=== PATIENT | female | born 1975 | race Caucasian/White ===

== ENCOUNTER 2016-11-12 10:23 | Emergency (ER) | payer MEDICAID ==
[~2016-11-12] VITALS: Ht 152.4 cm; Wt 65.5 kg
[~2016-11-12 10:23] MED LIST: FAMO-18 PO; HYDR-3720 PO; LD2VS100B MM; OMEP40CA3 PO
[2016-11-12 10:44] VITALS: Ht 152.4 cm; Wt 65.5 kg
[2016-11-12] MEDS ORDERED: SOD CHLORIDE 0.9% 1,000 ML IV STA (12:07)
[2016-11-12] MEDS ORDERED: morphine 4 MG/ML VIAL IV STA (12:07)
[2016-11-12] MEDS ORDERED: ONDANSETRON 4 MG INJ IV STA (12:07)
[2016-11-12 12:21] LABS: ADD SCAN DIFF NO
[2016-11-12 12:26] LABS: BASOPHILS % 0.3 % (0.0-2.0); EOSINOPHILS # 0.4 10^3/ul (0.0-0.5); EOSINOPHILS % 4.6 % (0.0-7.0); HEMOGLOBIN 10.4 g/dl (12.0-16.0); LYMPHOCYTES # 2.4 10^3/ul (0.8-2.9); LYMPHOCYTES % 24.4 % (15.0-51.0); MEAN CORPUSCULAR HEMOGLOBIN 21.9 pg (29.0-33.0); MEAN CORPUSCULAR HGB CONC 30.6 g/dl (32.0-37.0); MEAN CORPUSCULAR VOLUME 71.6 fl (82.0-101.0); MONOCYTE # 0.7 10^3/ul (0.3-0.9); MONOCYTES % 6.7 % (0.0-11.0); NEUTROPHIL # 6.2 10^3/ul (1.6-7.5); NEUTROPHILS % 63.8 % (39.0-77.0); PLATELET COUNT 406 10^3/UL (140-415); RED BLOOD COUNT 4.75 10^6/ul (4.20-5.40); RED CELL DISTRIBUTION WIDTH 17.1 % (11.5-14.5); WHITE BLOOD COUNT 9.7 10^3/ul (4.8-10.8)
[2016-11-12 12:34] LABS: ADD UMIC NO; UR BILIRUBIN (Dip) NEGATIVE (NEGATIVE); UR BLOOD (Dip) NEGATIVE (NEGATIVE); UR CLARITY CLEAR (CLEAR); UR COLOR LT. YELLOW (YELLOW); UR GLUCOSE (Dip) NEGATIVE (NEGATIVE); UR KETONES (Dip) NEGATIVE (NEGATIVE); UR LEUKOCYTE ESTERASE (Dip) NEGATIVE (NEGATIVE); UR NITRITE (Dip) NEGATIVE (NEGATIVE); UR TOTAL PROTEIN (Dip) NEGATIVE (NEGATIVE); UR UROBILINOGEN (Dip) 0.2 E.U./dL (0.1-1.0)
[2016-11-12 12:50] LABS: ALBUMIN 4.9 g/dl (3.3-4.9); ALBUMIN/GLOBULIN RATIO 1.63; BILIRUBIN,INDIRECT 0.3 mg/dl (0-1.1); BILIRUBIN,TOTAL 0.3 mg/dl (0.2-1.3); CALCIUM 9.5 mg/dl (8.4-10.2); CREATININE 0.78 mg/dl (0.44-1.00); POTASSIUM 3.6 mmol/L (3.5-5.1); TOTAL PROTEIN 7.9 g/dl (6.1-8.1)
[2016-11-12] MEDS ORDERED: OMEP20CA16 PO (13:49)
[2016-11-12 14:15] VITALS: BP 117/65; PULSE 70; RESP 18; TEMP 98.2
--- NOTE | 2016-11-12 14:23 | ERA ---
ER Documentation Chief Complaint Date/Time DATE: 11/12/16 TIME: 14:14 Chief Complaint ABD PAIN WITH NAUSEA AND VOMITING X4 MONTHS. SEES BLOOD IN VOMIT HPI This is a 40-year-old female with a chief complaint of abdominal pain that is intermittent 4 months. Patient describes the pain as burning. Denies chest pain or shortness of breath. Patient's pain is worse with food and at nighttime. Patient describes burning in the throat. Denies dyspnea, abdominal aphasia, dysphasia. Denies any alleviating factors. Has been seen for this same symptomology many times over the past 4 months. Patient's last menstrual cycle was 1 week ago. Denies known . Patient denies anorexia, weight loss, migrating pain, constipation, new or recently changed medications, genital pain or ingestion of new or undercooked food. Patient has not taken any medication to relieve the symptoms. Surgery equals cholecystectomy 5 years ago. Patient's vaccination status is up-to-date. Denies drug or alcohol use, family medical history/personal medical history, or new/changed medications. ROS All systems reviewed and are negative except as per history of present illness. Medications Home Meds Active Scripts Omeprazole* (Omeprazole*) 20 Mg Capsule., 20 MG PO BID, #20 Prov:SHANTELL TOMLINSON PA-C 11/12/16 Famotidine* (Pepcid*) 20 Mg Tablet, 20 MG PO BID for 15 Days, TAB Prov:REYNALDO TURNER 09/26/15 Lidocaine Viscous 2%* (Lidocaine Viscous 2%*) 100 Ml Soln, 15 ML MM AC MEALS, # 120 ML Prov:ISADORA VELEZ DO 09/23/15 Omeprazole* (Prilosec*) 40 Mg Capsule., 40 MG PO DAILY, #60 CAP Prov:ISADORA VELEZ DO 09/23/15 Hydrocodone Bit-Acetaminophen* (G[place]rie*) 7.5-325 Tablet, 2 TAB PO Q4H Y for PAIN , #30 TAB Prov:ISADORA VELEZ DO 09/23/15 Allergies Allergies: Coded Allergies: Shellfish (Verified Allergy, Mild, 05/27/11) fish derived (Verified Allergy, Mild, 05/27/11) PMhx/Soc History of Surgery: Yes (CHOLECSTECTOMY,3 CS, TUBAL LIGATION) Anesthesia Reaction: No Hx Neurological Disorder: No Hx Respiratory Disorders: Yes (ASTHMA) Hx Cardiac Disorders: No Hx Psychiatric Problems: No Hx Miscellaneous Medical Probl: No Hx Alcohol Use: No Hx Substance Use: No Hx Tobacco Use: No Physical Exam Vitals Vital Signs Date Time Temp Pulse Resp B/P Pulse Ox O2 Delivery O2 Flow Rate FiO2 11/12/16 10:44 98.4 71 16 114/70 99 Physical Exam Const: [] Head: Atraumatic Eyes: Normal Conjunctiva ENT: Normal External Ears, Nose and Mouth. Neck: Full range of motion..~ No meningismus. Resp: Clear to auscultation bilaterally Cardio: Regular rate and rhythm, no murmurs Abd: Soft, non tender, non distended. Normal bowel sounds Skin: No petechiae or rashes Back: No midline or flank tenderness Ext: No cyanosis, or edema Neur: Awake and alert Psych: Normal Mood and Affect Result Diagram: 11/12/16 1214 11/12/16 1214 Results 24 hrs Laboratory Tests Test 11/12/16 12:14 White Blood Count 9.710^3/ul Red Blood Count 4.7510^6/ul Hemoglobin 10.4g/dl Hematocrit 34.0% Mean Corpuscular Volume 71.6fl Mean Corpuscular Hemoglobin 21.9pg Mean Corpuscular Hemoglobin Concent 30.6g/dl Red Cell Distribution Width 17.1% Platelet Count 24943^3/UL Mean Platelet Volume 10.0fl Neutrophils % 63.8% Lymphocytes % 24.4% Monocytes % 6.7% Eosinophils % 4.6% Basophils % 0.3% Nucleated Red Blood Cells % 0.0/100WBC Neutrophils # 6.210^3/ul Lymphocytes # 2.410^3/ul Monocytes # 0.710^3/ul Eosinophils # 0.410^3/ul Basophils # 0.010^3/ul Nucleated Red Blood Cells # 0.010^3/ul Urine Color LT. YELLOW Urine Clarity CLEAR Urine pH 5.5 Urine Specific Sullivan <=1.005 Urine Ketones NEGATIVE Urine Nitrite NEGATIVE Urine Bilirubin NEGATIVE Urine Urobilinogen 0.2 E.U./dL Urine Leukocyte Esterase NEGATIVE Urine Hemoglobin NEGATIVE Urine Glucose NEGATIVE% Urine Total Protein NEGATIVE Sodium Level 139mmol/L Potassium Level 3.6mmol/L Chloride Level 102mmol/L Carbon Dioxide Level 28mmol/L Anion Gap 13 Blood Urea Nitrogen 11mg/dl Creatinine 0.78mg/dl Glucose Level 81mg/dl Calcium Level 9.5mg/dl Total Bilirubin 0.3mg/dl Direct Bilirubin 0.00mg/dl Indirect Bilirubin 0.3mg/dl Aspartate Amino Transf (AST/SGOT) 25IU/L Alanine Aminotransferase (ALT/SGPT) 35IU/L Alkaline Phosphatase 71IU/L Total Protein 7.9g/dl Albumin 4.9g/dl Globulin 3.00g/dl Albumin/Globulin Ratio 1.63 Lipase 81U/L Current Medications Medications (Trade) Dose Ordered Sig/Shyam Route PRN Reason Start Time Stop Time Status Last Admin Dose Admin Sodium Chloride (NS) 1,000 ml @ 1,000 mls/hr Q1H STAT IV 11/12/16 12:07 11/12/16 13:06 DC 11/12/16 12:27 Morphine Sulfate (morphine) 4 mg ONCE STAT IV 11/12/16 12:07 11/12/16 12:08 DC 11/12/16 12:27 Ondansetron HCl (Zofran Inj) 4 mg ONCE STAT IV 11/12/16 12:07 11/12/16 12:08 DC 11/12/16 12:27 Procedures/MDM This is a 40-year-old female presenting with a chief complaint of stomach pain as described in the history and physical examination. Patient was given a 1 L bolus of saline, 4 mg of morphine IV, 4 mg of Zofran IV with relief of symptoms. Patient's workup included urinalysis, test, CBC, CMP and lipase. Patient's labs were remarkable only for mild small cell anemia most consistent with iron deficiency anemia. Patient had no signs of anemia on physical examination. Patient states that the pain has come and gone and gets worse with food and at night. Pain is described as burning. Most likely diagnosis is gastroesophageal reflux disease. Patient denies any chest pain. At this time I do not suspect appendicitis, ectopic , ovarian cyst, PID , UTI, intestinal ischemia, peritonitis, intestinal obstruction, perforated viscus, acute pancreatitis, cholelithiasis, cholangitis, mechanical obstruction , ACS or AAA. Patient's treatment plan will thus include omeprazole outpatient and recommendation to follow-up with primary care provider. On repeat exam, the abdominal exam has improved. The patient is well appearing, and tolerates PO. I have spoke with the patient regarding their condition and future management. They have verbally responded that they understand their status and treatment plan. The patients vitals are stable, and their current condition is appropriate for discharge. The patient will be given discharge instructions with return precautions. Patient was [place]z-speaking only and the water quality tester was ROSITA DALLAS. Departure Diagnosis: Primary Impression: Chronic GERD Condition: Stable Additional Instructions: Michelle un seguimiento con lozano PCP dentro de los prximos 1-3 mcguire para ying evaluaci n ms completa y ying posible derivacin a un especialista. Devuelva el departamento de emergencia inmediatamente si los sntomas empeoran o cambian. Si tiene alguna pregunta con respecto a los medicamentos, consulte con lozano farmac utico o con nosotros antes de salir. Si se producen reacciones adversas mientras jamison leticia medicamentos, suspenda el tratamiento y regrese inmediatamente al servicio de urgencias. [place] leticia medicamentos segn las indicaciones y complete el curso completo del tratamiento. SHANTELL TOMLINSON PA-C Nov 12, 2016 14:23
== END 2016-11-12 14:16 | disposition home or self-care (01) ==
LOC: FTE 10:23
DX: K21.9 Gastro-esophageal reflux disease without esophagitis (principal); J45.909 Unspecified asthma, uncomplicated; R11.2 Nausea with vomiting, unspecified
CPT/HCPCS: 80053; 81003; 83690; 85025; J2270; J2405; J7030; 36415; 96361; 96374; 96375